=== PATIENT | female | born 1965 | race American Indian/Alaskan Native ===

== ENCOUNTER 2020-05-29 09:18 | Outpatient (CLI) | payer OTHER ==
--- NOTE | 2020-05-29 11:46 | XRay Report ---
LEFT WRIST 2 VIEWS INDICATION / CLINICAL INFORMATION: LEFT WRIST PAIN FOR DISABILITY. COMPARISON: None available. FINDINGS: BONES / JOINT(S): No acute fracture or subluxation. No significant arthritis. SOFT TISSUES: No significant abnormality. ADDITIONAL FINDINGS: None. Signer Name: Torres Damon MD Signed: 05/29/2020 11:42 AM Workstation Name: [id number]
== END 2020-05-29 09:19 | disposition home or self-care (01) ==
LOC: XRAY 09:18
PROVIDERS: ATTEND Internal Medicine
DX: M79.642 Pain in left hand (principal); K76.9 Liver disease, unspecified